=== PATIENT | female | born 1995 | race African-American/Black ===

== ENCOUNTER 2018-11-16 12:35 | Inpatient (IN) | payer BC, OTHER ==
[2018-11-16] MEDS: ELECTROLYTE-148 SOLN 1,000 ML IV SCH (12:40)
[2018-11-16 13:56] LABS: BASO % 0.5 % (0-2.0); EOS % 0.5 % (0-4.5); HEMATOCRIT 27.7 % (32.4-45.2); HEMOGLOBIN 8.8 GM/dL (10.7-15.3); LYMPH % 23.4 % (8-40); MCH 26.4 pg (25.7-33.7); MCHC 31.9 g/dl (32.0-36.0); MEAN CELL VOLUME 82.7 fl (80-96); MEAN PLT VOLUME 10.6 fl (7.5-11.1); MONO % 7.5 % (3.8-10.2); NEUT % 68.1 % (42.8-82.8); PLATELET COUNT 158 K/MM3 (134-434); RBC 3.35 M/mm3 (3.60-5.2); RDW 14.1 % (11.6-15.6); WHITE BLOOD COUNT 5.5 K/mm3 (4.0-10.0)
[2018-11-16 14:16] LABS: INR 0.92 (0.83-1.09); PROTHROMBIN TIME (PATIENT) 10.9 SEC (9.7-13.0)
[2018-11-16 14:19] LABS: ACTIVATED PTT 26.2 SECONDS (25.2-36.5)
[2018-11-16 14:28] LABS: CALCIUM 8.6 mg/dL (8.5-10.1); CREATININE 0.7 mg/dL (0.55-1.3); POTASSIUM 4.2 mmol/L (3.5-5.1)
[2018-11-16 14:36] VITALS: BMI 32.4
[2018-11-16] MEDS ORDERED: ELECTROLYTE-148 SOLN 1,000 ML IV ONE (15:30)
[2018-11-16] MEDS ORDERED: CITRIC ACID/SODIUM CITRATE 30 ML UNIT-DOSE CUP PO ONE ×2 (15:30→15:40)
[2018-11-16] MEDS ORDERED: ELECTROLYTE-148 SOLN 500 ML IV ONE (15:37)
--- NOTE | 2018-11-16 15:42 | HP ---
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: No: Alzheimer's, CVA, Dementia, Migraine, Multiple Sclerosis, Peripheral Neuropathy, Parkinson's, Seizure, Syncope, TIA, Vertigo, Other Cardiovascular: No: AFIB, Aneurysm, Aortic Insufficiency, Aortic Stenosis, CAD, CHF, Deep Vein Thrombosis, HTN, Hyperlipdemia, NV, Mitral Insufficiency, Mitral Stenosis, Murmur, Pulmonary Hypertension, Other Pulmonary: No: Asthma, Bronchitis, Cancer, COPD, O2 Dependent, Pneumonia, Previously Intubated, Pulmonary Embolus, Pulmonary Fibrosis, Sleep Apnea, Other Gastrointestinal: No: Ascites, Cancer, Constipation, Crohn's Disease, Diverticulitis, Diverticulosis, Esophageal Varices, Gastritis, GERD, GI Bleed, Hemorrhoids, Hiatal Hernia, Inflamatory Bowel Disease, Irritable Bowel Disease, Pancreatitis, Peptic Ulcer Disease, Ulcerative Colitis, Other Hepatobiliary: No: Cirrhosis, Cholelithiasis, Cholecystitis, Choledocholithiasis , Hepatitis A, Hepatitis B, Hepatitis C, Other Renal/: No: Renal Failure, Renal Inusuff, BPH, Cancer, Hematuria, Hemodialysis , Neurogenic Bladder, Renal Calculi, UTI, Other Reproductive: No: Ectopic , Endometriosis, Fibroids, PID, Polycystic Ovary Syndrome, Postmenopausal, Other ...: 1 ...Para: 0 ...Term: 0 ...LMP: 03/04/18 ... Weeks Gestation by Dates: 36.5 ...EDC by Dates: 12/09/18 ...EDC by Sono: 12/09/18 Heme/Onc: No: Anemia, B12 Deficiency, Bleeding Disorder, Cancer, Current Chemotherapy, Current Radiation Therapy, Hemochromatosis, Hypercoaguable State, Myeloproliferative Synd, Sickle Cell Disease, Sickle Cell Trait, Thrombocytopenia, Other Infectious Disease: No: AIDS, C-Diff, Herpes Zoster, HIV, MRSA, STD's, Tuberculosis, VREF, Other Psych: No: Addictions, Anxiety, Bipolar, Depression, Panic, Psychosis, Schizophrenia, Other Musculoskeletal: No: Bursitis, Chronic low back pain, Hemiparesis, Hemiplegia, Osteoarthritis, Paraplegia, Other Rheumatology: No: Fibromyalgia, Gout, Lupus, Rheumatoid Arthritis, Sarcoidosis, Vasculitis, Other ENT: No: Allergic Rhinitis, Sinusitis, Other Endocrine: No: Keenan's Disease, Pernell's Disease, Diabetes Insipidus, Diabetes Mellitus, Hyperparathyroidism, Hyperthyroidism, Hypothyroidism, Osteopenia, SIADH, Other Dermatology: No: Basal Cell, Cellulitis, Eczema, Melanoma, Psoriasis, Squamous Cell, Other - Past Surgical History Past Surgical History: Yes: None. No: AAA Repair, AICD, Amputation, Appendectomy, Arthrosocopy, AV Fistula/Graft, Bariatric Surgery, Breast Biopsy, Bypass, CABG, Carotid Endarterectomy, Cataract Removal, Cholecystectomy, Colectomy, Colonoscopy, Colostomy, Craniotomy, , Cystectomy, Hernia Repair, Hysterectomy, Ileal Conduit, Ileosotomy, Joint Replacement, Kidney Transplant, Laminectomy, Liver Transplant, Mastectomy, Nephrectomy, Oopherectomy , Orchiectomy, Permanent Pacemaker, Prostatectomy, Splenectomy, Stent, Thoracotomy, TURP, Tonsillectomy, Tubal Ligation, Upper Endoscopy, Valve Replacement, Vasectomy, Vein Stripping/Ligation Hx Myomectomy: No Hx Transabdominal Cerclage: No - Advance Directives Advance Directives: Yes: Living Will, Health Care Proxy - Smoking History Smoking history: Never smoked Have you smoked in the past 12 months: No - Alcohol/Substance Use Hx Alcohol Use: No History of Substance Use: reports: None - Social History Usual Living Arrangement: Yes: With Parent ADL: Independent History of Recent Travel: No Home Medications - Allergies Allergies/Adverse Reactions: Allergies Allergy/AdvReac Type Severity Reaction Status Date / Time No Known Allergies Allergy Verified 11/16/18 14:36 - Home Medications Home Medications: Ambulatory Orders Labetalol 200 mg/200 ml-D5w 200 mg PO BID 11/16/18 Vitamins (Sjr) - 1 tab PO DAILY 11/16/18 Family Disease History - Family Disease History Family History: Denies Review of Systems Unable to obtain ROS, reason: denied - Review of Systems Constitutional: reports: No Symptoms Eyes: reports: No Symptoms HENT: reports: No Symptoms Neck: reports: No Symptoms Cardiovascular: reports: No Symptoms Respiratory: reports: No Symptoms Gastrointestinal: reports: No Symptoms Genitourinary: reports: No Symptoms Breasts: reports: No Symptoms Reported Musculoskeletal: reports: No Symptoms Integumentary: reports: No Symptoms Neurological: reports: No Symptoms Endocrine: reports: No Symptoms Hematology/Lymphatic: reports: No Symptoms Psychiatric: reports: No Symptoms Pain Intensity: 1 Physical Exam - Maternity Vital Signs: Vital Signs Temperature 98.5 F 11/16/18 14:21 Pulse Rate 99 H 11/16/18 15:34 Respiratory Rate 20 11/16/18 15:34 Blood Pressure 148/98 11/16/18 15:34 O2 Sat by Pulse Oximetry (%) Constitutional: Yes: Well Nourished, No Distress, Calm Eyes: Yes: WNL, Conjunctiva Clear, EOM Intact HENT: Yes: WNL, Atraumatic, Normocephalic Neck: Yes: WNL, Supple, Trachea Midline Cardiovascular: Yes: WNL, Regular Rate and Rhythm Lungs: Clear to auscultation Breast(s): Yes: WNL - Abdominal Exam/OB Fundal Height: 34 Number of Fetuses: Single Presentation: Vertex Contractions: Yes Regularity: Irritability Intensity: Unaware Monitor Mode: External Heart Rate Location: [facility] Category: I Accelerations: Non-Uniform Decelerations: Variable - Vaginal Exam/OB Vaginal Bleediing: No Speculum Exam: No Dilatation (cm): 1 Effacement (%): 10 Amniotic Membrane Status: Intact - Labs Lab Results: CBC, BMP 11/16/18 13:42 11/16/18 13:42 Hemorrhage Risk Assessment - Risk Factors Risk Score: 0 Risk Level: Low Risk Assessment/Plan: pre eclampsia, sga, olgo, non reassuring fht, for cs Assessment/Plan for c s
[2018-11-16] MEDS ORDERED: OXYTOCIN 20 UNITS in 0.9% NS 20 UNIT/1,000 ML INFUS.BAG IV ONE ×2 (15:57→17:41)
[2018-11-16] MEDS ORDERED: morphine SULFATE/Preservative Free 0.5 MG/ML (1cc Syringe) ONE (15:58)
[2018-11-16] MEDS ORDERED: MIDAZOLAM HCL 2 MG/2 ML SINGLE DOSE VIAL ONE (15:58)
[2018-11-16] MEDS ORDERED: ePHEDrine SULFATE 50 MG/1 ML AMPULE ONE (15:59)
[2018-11-16] MEDS ORDERED: SUCCINYLCHOLINE CHLORIDE 200 MG/10 ML SYRINGE ONE (15:59)
[2018-11-16] MEDS ORDERED: PROPOFOL 20 ML ONE (15:59)
--- NOTE | 2018-11-16 16:34 | PN ---
Progress Note (short form) - Note Progress Note: Asked to attend this C/S for this 23yrs old [id number] with PNL- neg, GBS- neg C/S done for Oligohydramnios/HTN Mom on Labetalol delivered clear fluid, cried soon after suctioned/ dried cord 3V, 9/9 Infant's PE nl for age. Infant looks SGA IMp: 36.5weeks LPT C/S for Oligohydramnios/HTN RNBC F/U BGM Watch fo resp distress Encourage BF/ Bonding Early feeds
[2018-11-16 17:13] LABS: HYALINE CASTS 30 /lpf (0-8); PH,URINE 6.5 (5.0-8.0); URINE APPEARANCE CLOUDY; URINE BILIRUBIN NEGATIVE (NEGATIVE); URINE COLOR YELLOW; URINE GLUCOSE (UA) NEGATIVE (NEGATIVE); URINE KETONE NEGATIVE (NEGATIVE); URINE LEUK ESTERASE 1+ (NEGATIVE); URINE NITRITE NEGATIVE (NEGATIVE); URINE PROTEIN 4+ (NEGATIVE); URINE RBC 2 /hpf (0-4); URINE WBC 42 /hpf (0-5)
[2018-11-16] MEDS ORDERED: oxyCODONE HCL 5 MG TABLET PO PRN ×2 (17:13)
[2018-11-16] MEDS ORDERED: IBUPROFEN 800 MG/8 ML IJ IVPB PRN (17:13)
[2018-11-16] MEDS ORDERED: SIMETHICONE 80 MG TAB.CHEW (FP) PO PRN (17:13)
[2018-11-16] MEDS ORDERED: METHYLERGONOVINE MALEATE 0.2 MG/1 ML AMP IM PRN (17:13)
[2018-11-16] MEDS ORDERED: ACETAMINOPHEN 325 MG TABLET (FP) PO PRN (17:13)
[2018-11-16] MEDS ORDERED: IBUPROFEN 600 MG TABLET (FP) PO PRN (17:13)
[2018-11-16] MEDS ORDERED: ONDANSETRON 4 MG/2 ML VIAL IVPUSH PRN (17:14)
[2018-11-16] MEDS ORDERED: morphine SULFATE/Preservative Free 0.5 MG/ML (1cc Syringe) EP ONE (17:14)
[2018-11-16] MEDS ORDERED: OXYTOCIN 20 UNITS in 0.9% NS 20 UNIT/1,000 ML INFUS.BAG IV SCH (17:15)
--- NOTE | 2018-11-16 17:22 | OP ---
Operative Note - Note: Operative Date: 11/16/18 Pre-Operative Diagnosis: preeclampsia, sga, oligo, non reassurung Operation: primary lt c s Findings: same Post-Operative Diagnosis: Same as Pre-op Surgeon: Damion Mack Ortho/Prosthetic Aide: Quan Pinto Anesthesiologist/LOG MARKER: Ramiro Mason Anesthesia: Spinal Estimated Blood Loss (mls): 500 Operative Report Dictated: Yes
[2018-11-16] MEDS ORDERED: NIFEdipine E.R. 30 MG TABLET (FP) PO ONE (19:00)
[2018-11-16 19:05] LABS: URIC ACID 6.3 mg/dL (2.6-7.2)
[2018-11-16] MEDS ORDERED: MAGNESIUM 4GM/H20 - 4 GM/100 ML IVPB IVPB ONE (19:27)
[2018-11-16] MEDS ORDERED: MAGNESIUM SULFATE 20GM/500ML - 20 GM/500 ML INFUS.BAG ONE (19:27)
[2018-11-16] MEDS: OXYTOCIN 20 UNITS in 0.9% NS 20 UNIT/1,000 ML INFUS.BAG IV SCH (20:00)
[2018-11-16] MEDS ORDERED: MAGNESIUM 4GM/H20 - 4 GM/100 ML IVPB IVPB SCH (20:00)
[2018-11-16] MEDS: MAGNESIUM SULFATE 20GM/500ML - 20 GM/500 ML INFUS.BAG IV SCH (20:15)
[2018-11-16] MEDS: LABETALOL HCL 200 MG TABLET (FP) PO SCH ×2 (20:30→22:00)
[2018-11-16] MEDS ORDERED: LABETALOL HCL 200 MG TABLET (FP) ONE (20:39)
[2018-11-16] MEDS: FERROUS SO4 325 MG TABLET (FP) PO SCH (22:00)
[2018-11-17] MEDS: OXYTOCIN 20 UNITS in 0.9% NS 20 UNIT/1,000 ML INFUS.BAG IV SCH (02:30)
[2018-11-17] MEDS ORDERED: MAGNESIUM SULFATE 20GM/500ML - 20 GM/500 ML INFUS.BAG ONE (04:23)
[2018-11-17] MEDS: MAGNESIUM SULFATE 20GM/500ML - 20 GM/500 ML INFUS.BAG IV SCH (05:05)
[2018-11-17] MEDS: DEXTROSE 5%-LACTATED RINGERS 1,000 ML IV SCH ×2 (08:07→20:19)
[2018-11-17 08:26] LABS: BASO % 0.2 % (0-2.0); HEMATOCRIT 32.1 % (32.4-45.2); HEMOGLOBIN 10.3 GM/dL (10.7-15.3); LYMPH % 6.9 % (8-40); MCH 26.2 pg (25.7-33.7); MEAN CELL VOLUME 81.9 fl (80-96); MEAN PLT VOLUME 11.2 fl (7.5-11.1); MONO % 4.3 % (3.8-10.2); NEUT % 88.6 % (42.8-82.8); PLATELET COUNT 192 K/MM3 (134-434); RBC 3.92 M/mm3 (3.60-5.2); RDW 14.4 % (11.6-15.6); WHITE BLOOD COUNT 17.5 K/mm3 (4.0-10.0)
[2018-11-17] MEDS: FERROUS SO4 325 MG TABLET (FP) PO SCH ×2 (10:05→21:15)
[2018-11-17] MEDS: LABETALOL HCL 200 MG TABLET (FP) PO SCH ×2 (10:05→21:15)
--- NOTE | 2018-11-17 10:27 | PN ---
HC Provider Note Provider Note: Anesthesia Post-op Pt seen s/p spinal for c/s, complicated by pre-eclampsia Pt found awake alert receiving Magnesium on L&D Pt denies h/a, n/v, vega remains in situ Pt has not ambulated yet but reports return of sensory and motor function b/l lower ext VSS no apparent anesthesia complications Janey Cutler.
[2018-11-17] MEDS ORDERED: IBUPROFEN 600 MG TABLET (FP) PO ONE (11:00)
--- NOTE | 2018-11-17 14:05 | PN ---
Post Progress Note - Subjective Subjective: bp are well controlled Post Day: 1 Type of Delivery: Primary C/S Vital Signs: Vital Signs Temperature 97.9 F 11/17/18 13:00 Pulse Rate 88 11/17/18 13:00 Respiratory Rate 17 11/17/18 13:00 Blood Pressure 106/57 L 11/17/18 13:00 O2 Sat by Pulse Oximetry (%) Breast Exam: Yes: Soft Uterus: Yes: Fundus Firm, Fundus below umbilicus Incision: Yes: Dressing dry and intact, Sutures intact Abdomen/GI: Yes: Abdomen soft, Passing flatus, Tolerating PO Lochia: Yes: Alba Lochia, amount: Small Extremities: Yes: Calves non-tender Activity: Ambulating - Labs Labs: CBC WBC 17.5 K/mm3 (4.0-10.0) H 11/17/18 07:00 RBC 3.92 M/mm3 (3.60-5.2) 11/17/18 07:00 Hgb 10.3 GM/dL (10.7-15.3) L 11/17/18 07:00 Hct 32.1 % (32.4-45.2) L D 11/17/18 07:00 MCV 81.9 fl (80-96) 11/17/18 07:00 MCH 26.2 pg (25.7-33.7) 11/17/18 07:00 MCHC 32.0 g/dl (32.0-36.0) 11/17/18 07:00 RDW 14.4 % (11.6-15.6) 11/17/18 07:00 Plt Count 192 K/MM3 (134-434) D 11/17/18 07:00 MPV 11.2 fl (7.5-11.1) H 11/17/18 07:00 Absolute Neuts (auto) 15.5 K/mm3 (1.5-8.0) H 11/17/18 07:00 Neutrophils % 88.6 % (42.8-82.8) H D 11/17/18 07:00 Lymphocytes % 6.9 % (8-40) L D 11/17/18 07:00 Monocytes % 4.3 % (3.8-10.2) 11/17/18 07:00 Eosinophils % 0.0 % (0-4.5) D 11/17/18 07:00 Basophils % 0.2 % (0-2.0) 11/17/18 07:00 Nucleated RBC % 0 % (0-0) 11/17/18 07:00 Retic Count 1.59 % (0.5-1.5) H 11/16/18 18:05 wnl, mag off , Other Findings, Remarks: bp are well controlled, will dc mag, transfer pt to floor Assessment/Plan transfer pt to post
[2018-11-17] MEDS ORDERED: OXYTOCIN 20 UNITS in 0.9% NS 20 UNIT/1,000 ML INFUS.BAG IV ONE (14:15)
[2018-11-17] MEDS ORDERED: ONDANSETRON 4 MG/2 ML VIAL IVPUSH PRN (15:52)
[2018-11-17] MEDS ORDERED: DEXTROSE 5%-LACTATED RINGERS 1,000 ML IV SCH (15:52)
[2018-11-17] MEDS ORDERED: IBUPROFEN 600 MG TABLET (FP) PO PRN (15:52)
[2018-11-17] MEDS ORDERED: ELECTROLYTE-148 SOLN 1,000 ML IV SCH (15:52)
[2018-11-17] MEDS ORDERED: OXYTOCIN 20 UNITS in 0.9% NS 20 UNIT/1,000 ML INFUS.BAG IV SCH (15:52)
[2018-11-17] MEDS ORDERED: IBUPROFEN 800 MG/8 ML IJ IVPB PRN (15:52)
[2018-11-17] MEDS ORDERED: oxyCODONE HCL 5 MG TABLET PO PRN (15:52)
[2018-11-17] MEDS ORDERED: METHYLERGONOVINE MALEATE 0.2 MG/1 ML AMP IM PRN (15:52)
[2018-11-17] MEDS ORDERED: BISACODYL 10 MG SUPP.RECT RC PRN ×2 (17:14)
[2018-11-17] MEDS: ELECTROLYTE-148 SOLN 1,000 ML IV SCH (20:18)
[2018-11-17] MEDS: SIMETHICONE 80 MG TAB.CHEW (FP) PO PRN (21:22)
[2018-11-17] MEDS: ACETAMINOPHEN 325 MG TABLET (FP) PO PRN (21:22)
[2018-11-17] MEDS: oxyCODONE HCL 5 MG TABLET PO PRN (21:22)
--- NOTE | 2018-11-18 00:33 | OP ---
DATE OF OPERATION: 11/16/2018 PREOPERATIVE DIAGNOSES: Preeclampsia and nonreassuring heart tracing, oligohydramnios, small for gestational age. POSTOPERATIVE DIAGNOSES: Preeclampsia and nonreassuring heart tracing, oligohydramnios, small for gestational age, and cord around the neck x1. PROCEDURE: Primary low transverse section. SURGEON: Damion Mack MD HAIR BOILER OPERATOR: YAHIR Pitts ANESTHESIA: Spinal by Kenrick Mason MD and Bret. BLOOD LOSS: About 500 mL. INDICATION: This is a 23-year-old female patient, 36 weeks and 3 days , has been followed up in the office for preeclampsia for the past 4 or 5 days, and patient was placed on labetalol 200 mg twice a day for the blood pressure and in order to prolong the gestational age to 37 weeks. The blood pressure was about 135 range on the labetalol for preeclampsia management as an outpatient. Patient did not of having any headache or any epigastric pain. However, patient's 24-hour urine collection appeared to be elevated, and also, the urine dipstick appeared to be 3+ to 4+ in the office. So, patient was sent in from the office today for non-inducible cervix and preeclampsia and for a semi-emergency . So, patient was placed on monitor in labor and delivery and was found to have a few variable decelerations. So, the blood pressure was elevated to 155'azael in the labor and delivery room, and so, decision was made as the nonreassuring heart rate tracing, and the patient taken to the OR for primary low transverse section. DESCRIPTION OF PROCEDURE: After the spinal anesthesia was obtained, patient was placed on the operating table in supine position. The patient's abdomen and pelvis were prepped and draped in the usual sterile manner. Pfannenstiel incision was made. Incision was made through skin and subcutaneous tissue, and then, the fascia was nicked in the midline. The fascia extended bilaterally. Intraperitoneal cavity was entered. Bladder flap was created. Low transverse segment was entered. Baby delivered from LOT position. There was cord around the neck x1. Baby was handed over to paver layer after umbilical cord doubly clamped and cut. Cord blood gases obtained. Placenta was removed. Uterus closed in single layer, first layer interlocking Vicryl sutures. Good hemostasis. Both gutters cleaned. Both ovaries, fallopian tubes, and uterus were within normal limits, and the peritoneum was closed. Fascia was closed. Skin was closed. Patient tolerated the procedure well. Draining clear urine. Blood loss about 500 mL. MD KEYANA WAGNER/[id number]
[2018-11-18] MEDS: SIMETHICONE 80 MG TAB.CHEW (FP) PO PRN ×2 (06:08→21:21)
[2018-11-18] MEDS: oxyCODONE HCL 5 MG TABLET PO PRN ×2 (06:08→12:44)
[2018-11-18] MEDS: ACETAMINOPHEN 325 MG TABLET (FP) PO PRN ×3 (06:09→21:21)
[2018-11-18] MEDS: LABETALOL HCL 200 MG TABLET (FP) PO SCH ×2 (09:25→21:22)
[2018-11-18] MEDS: FERROUS SO4 325 MG TABLET (FP) PO SCH ×2 (09:25→21:21)
[2018-11-18] MEDS ORDERED: DIPHTH,PERTUSS(ACELL),TET 0.5 ML DISP.SYRIN IM ONE ×2 (10:00→20:45)
--- NOTE | 2018-11-18 15:18 | PATH ---
Surgical Pathology Report Patient Name: DEANDRA ESPOSITO Med. Rec. 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 Electronically Signed Kenyetta Holder M.D. Gross Description The specimen is received fresh labeled placenta and is a 317 gram, 15.0 x 13.0 x 1.7 cm. placenta with attached membranes and umbilical cord. The attached membranes are mcwilliams, translucent with focal opacities and insert marginally. The umbilical cord measures 25 cm. in length and averages 1 cm. in diameter. The cord inserts eccentrically, 2 cm. to the nearest margin. No true knots or strictures are identified. Cut surface of the umbilical cord reveals 3 vessels. The surface is nick-blue with minimal fibrin deposition and appropriate caliber vessels. The maternal surface is red-brown with focal defects. Sectioning reveals red-brown, spongy parenchyma. No lesions are identified. Slimer sections are submitted in three cassettes as follows: 1- membrane rolls and umbilical cord; 2-3- full thickness sections of placenta. /11/17/2018 [facility]11/17/2018
--- NOTE | 2018-11-18 20:05 | PN ---
Post Progress Note - Subjective Subjective: bp well controlled, doing well Post Day: 2 Type of Delivery: Primary C/S Vital Signs: Vital Signs Temperature 98.5 F 11/18/18 17:54 Pulse Rate 85 11/18/18 17:54 Respiratory Rate 18 11/18/18 17:54 Blood Pressure 141/79 11/18/18 17:54 O2 Sat by Pulse Oximetry (%) Breast Exam: Yes: Soft Uterus: Yes: Fundus Firm, Fundus below umbilicus Incision: Yes: Dressing dry and intact, Sutures intact Abdomen/GI: Yes: Abdomen soft, Passing flatus, Tolerating PO Lochia: Yes: Alba Lochia, amount: Small Extremities: Yes: Calves non-tender Activity: Ambulating - Labs Labs: CBC WBC 17.5 K/mm3 (4.0-10.0) H 11/17/18 07:00 RBC 3.92 M/mm3 (3.60-5.2) 11/17/18 07:00 Hgb 10.3 GM/dL (10.7-15.3) L 11/17/18 07:00 Hct 32.1 % (32.4-45.2) L D 11/17/18 07:00 MCV 81.9 fl (80-96) 11/17/18 07:00 MCH 26.2 pg (25.7-33.7) 11/17/18 07:00 MCHC 32.0 g/dl (32.0-36.0) 11/17/18 07:00 RDW 14.4 % (11.6-15.6) 11/17/18 07:00 Plt Count 192 K/MM3 (134-434) D 11/17/18 07:00 MPV 11.2 fl (7.5-11.1) H 11/17/18 07:00 Absolute Neuts (auto) 15.5 K/mm3 (1.5-8.0) H 11/17/18 07:00 Neutrophils % 88.6 % (42.8-82.8) H D 11/17/18 07:00 Lymphocytes % 6.9 % (8-40) L D 11/17/18 07:00 Monocytes % 4.3 % (3.8-10.2) 11/17/18 07:00 Eosinophils % 0.0 % (0-4.5) D 11/17/18 07:00 Basophils % 0.2 % (0-2.0) 11/17/18 07:00 Nucleated RBC % 0 % (0-0) 11/17/18 07:00 Retic Count 1.59 % (0.5-1.5) H 11/16/18 18:05 Assessment/Plan bp doing well, can be dc home tomorrow , continue taking bp medications for one more week
--- NOTE | 2018-11-18 20:11 | DS ---
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 SPECIALIST Vital Signs: Vital Signs Temperature 98.5 F 11/18/18 17:54 Pulse Rate 85 11/18/18 17:54 Respiratory Rate 18 11/18/18 17:54 Blood Pressure 141/79 11/18/18 17:54 O2 Sat by Pulse Oximetry (%) bp wnl Constitutional: Yes: Well Nourished, No Distress, Calm Eyes: Yes: WNL, Conjunctiva Clear, EOM Intact HENT: Yes: WNL, Atraumatic, Normocephalic Neck: Yes: WNL, Supple, Trachea Midline Cardiovascular: Yes: WNL, Regular Rate and Rhythm Respiratory: Yes: WNL, Regular, CTA Bilaterally Gastrointestinal: Yes: WNL, Normal Bowel Sounds, Soft ...Rectal Exam: Yes: WNL Renal/: Yes: WNL Pelvis: Yes: WNL External Genitalia: Yes: Normal Internal Exam Deferred: Yes Vaginal Exam: Yes: Normal Cervix: Yes: Normal Uterus: Yes: Normal Adnexa: Normal: Left, Right, Bilateral ....Post : Yes: Uterus firm, Uterus non-tender Breast(s): Yes: WNL Musculoskeletal: Yes: WNL Extremities: Yes: WNL Edema: LUE: 1+, RUE: 1+, LLE: 1+, RLE: 1+ Integumentary: Yes: WNL Wound/Incision: Yes: Clean/Dry, Well Approximated Neurological: Yes: WNL, Alert, Oriented ...Motor Strength: WNL Psychiatric: Yes: WNL, Alert, Oriented Labs: CBC, BMP 11/17/18 07:00 11/16/18 13:42 Delivery - Delivery Section: Primary Type of Anesthesia: Spinal Episiotomy/Laceration: None EBL (cc): 500 Delivery, Single - Stages of Labor Date of Delivery: 11/16/18 Time of Delivery: 16:21 Time Placenta Delivered: 16:23 - Condition of Multimedia Developer/Civil Transportation Engineer Present: Yes Name: Noel Romeo Infant Gender: Female Weight: 2.296 kg Position: OP Total Hours ROM (Hrs/Mins): 1 min. - 1 Minute Total Score: 9 5 Minutes Total Score: 9 - Feeding Plan Initial Plan: Elected not to breastfeed exclusively throughout hospitalization Benefits of Exclusively reinforced: Yes Discharge Summary Reason For Visit: Condition: Stable - Instructions Disposition: HOME - Home Medications Comprehensive Discharge Medication List: Ambulatory Orders Labetalol 200 mg/200 ml-D5w 200 mg PO BID 11/16/18 Vitamins (Sjr) - 1 tab PO DAILY 11/16/18
[2018-11-19 08:23] VITALS: BP 134/75; PULSE 95; TEMP 98.3
[2018-11-19] MEDS: FERROUS SO4 325 MG TABLET (FP) PO SCH (10:51)
[2018-11-19] MEDS: LABETALOL HCL 200 MG TABLET (FP) PO SCH (10:51)
== END 2018-11-19 12:45 | disposition home or self-care (01) | DRG 787 ==
LOC: JLDR 12:35 → J3W 11-17 14:20
PROVIDERS: ADMIT Obstetrics & Gynecology; ATTEND Obstetrics & Gynecology
PROC: 10D00Z1 Extraction of Products of Conception, Low, Open Approach (ICD-10-PCS; principal; 2018-11-16)
DX: O14.93 Unspecified pre-eclampsia, third trimester (principal); O41.03X0 Oligohydramnios, third trimester, not applicable or unspecified; O76 Abnormality in fetal heart rate and rhythm complicating labor and delivery; O36.5930 Maternal care for other known or suspected poor fetal growth, third trimester, not applicable or unspecified; Z3A.36 36 weeks gestation of pregnancy; O69.81X0 Labor and delivery complicated by cord around neck, without compression, not applicable or unspecified; Z37.0 Single live birth
CPT/HCPCS: 36415; 71046-TC-FY; 80048; 81003; 82977; 83010; 83735; 84450; 84460; 84550; 85025; 85044; 85610; 85730; 86593; 86850; 86900; 86901; 87389; 88307-TC; 90715

== ENCOUNTER 2020-09-05 06:05 | Inpatient (IN) | payer BC, OTHER ==
[2020-09-05] MEDS ORDERED: ELECTROLYTE-148 SOLN 500 ML IV ONE ×2 (06:30→08:14)
[2020-09-05] MEDS ORDERED: CITRIC ACID/SODIUM CITRATE 30 ML UNIT-DOSE CUP PO ONE (06:30)
[2020-09-05 06:53] VITALS: BMI 29.5
[2020-09-05] MEDS ORDERED: ELECTROLYTE-148 SOLN 1,000 ML IV SCH ×2 (07:00→08:15)
[2020-09-05] MEDS ORDERED: OXYTOCIN 20 UNITS in 0.9% NS 40 UNIT/2,000 ML INFUS.BAG IV ONE (07:42)
[2020-09-05] MEDS ORDERED: morphine SULFATE/Preservative Free 0.5 MG/ML (1cc Syringe) ONE (07:51)
[2020-09-05] MEDS ORDERED: ONDANSETRON 4 MG/2 ML VIAL ONE (07:51)
[2020-09-05] MEDS ORDERED: ceFAZolin SODIUM 1 GM VIAL ONE (07:51)
[2020-09-05] MEDS ORDERED: DEXAMETHASONE SOD PHOSPHATE 4 MG/1 ML VIAL ONE (07:51)
[2020-09-05] MEDS ORDERED: DEXTROSE 5%-LACTATED RINGERS 1,000 ML IV SCH (08:15)
[2020-09-05] MEDS ORDERED: PHENYLEPHRINE HCL 10 MG/1 ML SINGLE DOSE VIAL ONE (08:31)
[2020-09-05] MEDS ORDERED: OXYTOCIN 10 UNITS/ML VIAL ONE (08:33)
[2020-09-05] MEDS ORDERED: OXYTOCIN 20 UNITS in 0.9% NS 20 UNIT/1,000 ML INFUS.BAG IV ONE (09:13)
[2020-09-05] MEDS ORDERED: ONDANSETRON 4 MG/2 ML VIAL IVPUSH PRN (09:35)
[2020-09-05] MEDS ORDERED: SIMETHICONE 80 MG TAB.CHEW (FP) PO PRN (09:36)
[2020-09-05] MEDS ORDERED: SENNOSIDES/DOCUSATE COMBO (SENNA PLUS) TABLET (UD) PO PRN (09:36)
[2020-09-05] MEDS ORDERED: oxyCODONE HCL 5 MG TABLET PO PRN ×2 (09:36)
[2020-09-05] MEDS ORDERED: IBUPROFEN 800 MG/8 ML IJ IVPB PRN (09:36)
[2020-09-05] MEDS ORDERED: IBUPROFEN 600 MG TABLET (FP) PO PRN (09:36)
[2020-09-05] MEDS ORDERED: ACETAMINOPHEN 325 MG TABLET (FP) PO PRN (09:36)
[2020-09-05] MEDS ORDERED: METHYLERGONOVINE MALEATE 0.2 MG/1 ML AMP IM PRN (09:36)
[2020-09-05] MEDS ORDERED: OXYTOCIN 20 UNITS in 0.9% NS 20 UNIT/1,000 ML INFUS.BAG IV SCH (09:45)
[2020-09-05] MEDS: PRENATAL VITAMINS W/ FOLIC ACID TABLET (FP) PO SCH (11:41)
[2020-09-05] MEDS ORDERED: NIFEdipine E.R. 30 MG TABLET PO ONE (11:45)
[2020-09-05] MEDS: LABETALOL HCL 200 MG TABLET (FP) PO SCH ×2 (13:21→21:23)
[2020-09-06 08:49] LABS: BASO % 0.3 % (0-2.0); HEMATOCRIT 26.6 % (32.4-45.2); HEMOGLOBIN 8.7 GM/dL (10.7-15.3); LYMPH % 16.6 % (8-40); MCH 24.8 pg (25.7-33.7); MCHC 32.5 g/dl (32.0-36.0); MEAN CELL VOLUME 76.5 fl (80-96); MEAN PLT VOLUME 9.9 fl (7.5-11.1); MONO % 7.5 % (3.8-10.2); NEUT % 75.6 % (42.8-82.8); PLATELET COUNT 232 K/MM3 (134-434); RBC 3.48 M/mm3 (3.60-5.2); RDW 15.3 % (11.6-15.6); WHITE BLOOD COUNT 13.1 K/mm3 (4.0-10.0)
[2020-09-06] MEDS ORDERED: BISACODYL 10 MG SUPP.RECT RC PRN (09:37)
[2020-09-06] MEDS: PRENATAL VITAMINS W/ FOLIC ACID TABLET (FP) PO SCH (09:55)
[2020-09-06] MEDS ORDERED: DIPHTH,PERTUSS(ACELL),TET 0.5 ML DISP.SYRIN IM ONE (10:00)
[2020-09-06] MEDS: LABETALOL HCL 200 MG TABLET (FP) PO SCH ×2 (10:03→22:42)
[2020-09-07] MEDS: PRENATAL VITAMINS W/ FOLIC ACID TABLET (FP) PO SCH (09:04)
[2020-09-07] MEDS: LABETALOL HCL 200 MG TABLET (FP) PO SCH (09:04)
[2020-09-07 10:24] VITALS: BP 143/93; PULSE 79; TEMP 98.9
== END 2020-09-07 13:05 | disposition home or self-care (01) | DRG 787 ==
LOC: JLDR 06:05 → J3W 10:30
PROVIDERS: ADMIT Obstetrics & Gynecology; ATTEND Obstetrics & Gynecology
PROC: 10D00Z1 Extraction of Products of Conception, Low, Open Approach (ICD-10-PCS; principal; 2020-09-05)
DX: O34.211 Maternal care for low transverse scar from previous cesarean delivery (principal); O10.92 Unspecified pre-existing hypertension complicating childbirth; Z3A.38 38 weeks gestation of pregnancy; Z37.0 Single live birth
CPT/HCPCS: 36415; 85025; 88307-TC; 90715